=== PATIENT | male | born 1930 | race Caucasian/White ===

== ENCOUNTER 2016-12-11 20:49 | Inpatient (IN) ==
[2016-12-11] MEDS ORDERED: XOPENEX NEB INH ONE (20:57)
[2016-12-11] MEDS ORDERED: XOPENEX NEB ONE (21:00)
[2016-12-11 21:45] LABS: BASO% 0.5 % (0.0-0.8); EOS# 0.03 X1000 (0.0-0.7); EOS% 0.5 % (0.0-10.0); HEMATOCRIT 34.1 % (42.0-52.0); HEMOGLOBIN 9.7 g/dL (14.0-18.0); LYMPH% 18.8 % (20.5-51.1); MANUAL DIFF NEEDED? NO; MCH 22.8 PG (27-31); MCHC 28.4 g/dL (33-37); MCV 80.2 FL (81-99); MONO# 0.49 X1000 (0.11-0.59); MONO% 8.4 % (1.7-9.3); NEUT% 71.8 % (42.2-75.2); PLT 165 X1000 (130-400); RBC 4.25 XMIL (4.7-6.1)
--- NOTE | 2016-12-11 21:51 | EKG Report ---
Test Performed on : 12/11/2016 9:16:34 PM Test Reason : CHEST PAIN Blood Pressure : / mmHG Vent. Rate : 055 BPM Atrial Rate : 052 BPM P-R Int : 000 ms QRS Dur : 154 ms QT Int : 448 ms P-R-T Axes : 000 -75 -10 degrees QTc Int : 428 ms Atrial fibrillation. with slow ventricular response. Left axis deviation Right bundle branch block Septal infarct , age undetermined T wave abnormality, consider lateral ischemia Abnormal ECG When compared with ECG of 06-JUN-2016 08:30, No significant change was found Unconfirmed Result
[2016-12-11 21:56] LABS: INR 1.12 (0.86-1.15); PROTIME 15.3 Seconds (12.1-15.5)
[2016-12-11 21:57] LABS: PTT PL 32.1 Seconds (22.6-43.9)
[2016-12-11 21:59] LABS: AGAP 6; ALBUMIN 3.4 g/dL (3.5-5.0); ALKALINE PHOSPHATASE 81 U/L (32-122); BUN 31 mg/dL (8-22); CALCIUM 8.6 mg/dL (8.8-10.2); CHLORIDE 97 mmol/L (98-107); CK PROFILE 134 U/L (24-204); COSMO 288; GOT 25 U/L (10-34); GPT 28 U/L (10-44); MAGNESIUM 2.2 mg/dL (1.5-2.7); POTASSIUM 3.6 mmol/L (3.5-5.1); SODIUM 141 mmol/L (136-145); TCO2 38 mmol/L (25-35); TOTAL PROTEIN 5.6 g/dL (6.3-8.3)
[2016-12-11] MEDS ORDERED: LASIX IV ONE (22:48)
[2016-12-11] MEDS ORDERED: ZOFRAN IV PRN (23:38)
[2016-12-11] MEDS ORDERED: MORPHINE IV PRN (23:38)
--- NOTE | 2016-12-11 23:41 | PROVIDER DOCUMENTATION ---
HPI-General Adult - General Chief Complaint: Shortness of Breath Stated Complaint: DYSPNEA, HX COPD Time Seen by Provider: 12/11/16 20:50 Source: patient Allergies/Adverse Reactions: Patient Allergies Allergy/AdvReac Type Severity Reaction Status Date / Time Penicillins Allergy Mild RASH Verified 12/11/16 20:59 Home Medications: Home Medication List Medication Instructions Recorded Confirmed Last Taken Type Donepezil [Aricept] 5 mg PO QAM 06/04/16 12/12/16 12/10/16 History Duloxetine [Cymbalta] 30 mg PO DAILY 06/04/16 12/12/16 12/10/16 History Dutasteride 0.5 mg PO DAILY 06/04/16 12/12/16 12/10/16 History Esomeprazole [Nexium] 40 mg PO DAILY 06/04/16 12/12/16 12/10/16 History Melatonin 10 mg PO HS 06/04/16 12/12/16 12/10/16 History Mirtazapine [Remeron] 30 mg PO QHS 06/04/16 12/12/16 12/10/16 History Tamsulosin HCl 0.4 mg PO QAM 06/04/16 12/12/16 12/10/16 History Tramadol [Ultram] 50 mg PO BID PRN PRN 06/04/16 12/12/16 12/10/16 History Apixaban [Eliquis] 2.5 mg PO DAILY 12/12/16 12/12/16 12/10/16 History Bumetanide 2 mg PO BID 12/12/16 12/12/16 12/10/16 History Digoxin [Digoxin] 250 mcg PO DAILY 12/12/16 12/12/16 12/10/16 History Gabapentin [Neurontin] 100 mg PO DAILY 12/12/16 12/12/16 12/10/16 History - History of Present Illness -Gen Adult Nature of Presenting Problems: presents complaining of 2 day history of dyspnea and edema to BUE. No fever, cough. History of copd and is on oxygen at home. No record of chf history. Location of Pain/Injury: reports: none Pain Radiation: reports: no radiation Quality of Pain: reports: none Onset/Duration: reports: 2 days ago Context/Activities at Onset: reports: none Modifying Factors: improves with: nothing Associated Symptoms: reports: shortness of breath. denies: anxiety, chest pain , constipation, cough, diarrhea, dizziness, fatigue, fever/chills, headaches, malaise, nausea, rash, pain with inspiration, syncope, vomiting, weakness Similar Symptoms Previously?: No Recently seen or treated by another doctor?: No Review of Systems - Adult - REVIEW OF SYSTEMS - ADULT Constitutional: reports: no symptoms reported. denies: chills, fever Eyes: reports: no symptoms reported Ears, Nose, Mouth & Throat: reports: no symptoms reported Cardiovascular: reports: no symptoms reported. denies: chest pain Respiratory: reports: shortness of breath Gastrointestinal: reports: no symptoms reported Genitourinary: reports: no symptoms reported Musculoskeletal: reports: no symptoms reported Integumentary: reports: no symptoms reported Neurological: reports: no symptoms reported Psychiatric: reports: no symptoms reported Endocrine: reports: no symptoms reported Hematologic/Lymphatic: reports: no symptoms reported Allergic/Immunologic: reports: no symptoms reported All Other Systems: Reviewed and Negative Past History - Adult - PAST MEDICAL HISTORY-ADULT Review of Records: reports: Old Records Reviewed, Nursing Assessment Review, Medications Reviewed, Social history reviewed & non-contributory. Major Childhood Illnesses: reports: denies history Cardiovascular: reports: A-Fib, CAD, CHF, HTN Respiratory: reports: COPD Gastrointestinal: reports: GERD, GI bleed, other (Yvon lesions) Obstetrical/Gynecological: reports: denies history Genitourinary: reports: cancer (bladder), other (BPH) Musculoskeletal: reports: denies history Neurological: reports: denies history Psychiatric: reports: depression Endocrine/Immune: reports: Diabetes Other Conditions: reports: denies history - PRIOR SURGERIES/PROCEDURES Surgical/Procedure History: reports: tonsillectomy, hernia repair, other (TURP) - PRIOR HOSPITALIZATIONS Prior Hospitalizations: reports: for similar symptoms - IMMUNIZATION STATUS Childhood Immunizations: See Nurse Assessment Flu Vaccine: See Nurse Assessment - FAMILY HISTORY Family History: reviewed, not pertinent - SOCIAL HISTORY Smoking: denies Substance Use: none/never Alcohol Use Frequency: never Living Situation: care facility Physical Exam-General - PHYSICAL EXAM-ADULT Initial Vital Signs Reviewed: Yes - CONSTITUTIONAL General Appearance: appears well, alert, no apparent distress - EYES Eyes: PERRL/EOMI, pink conjunctivae - HEAD, EARS, NOSE, MOUTH & THROAT HENMT: normocephalic/atraumatic - NECK Neck: supple, normal inspection - RESPIRATORY Respiratory: chest non-tender, lungs clear, normal breath sounds - CARDIOVASCULAR Cardiovascular: normal peripheral pulses, regular rate, rhythm - GASTROINTESTINAL (ABDOMEN) Abdominal Exam: normal bowel sounds, non tender, soft - LYMPHATIC Lymphatic: no adenopathy - MUSCULOSKELETAL Back Exam: normal inspection Extremity: normal range of motion, other (there are several healing ulcers to LE ) Peripheral Pulses: dorsalis-pedis (R): 2+, dorsalis-pedis (L): 2+ - SKIN Integumentary: normal color, normal turgor, warm/dry - NEUROLOGIC Neurologic: grossly normal - PSYCHIATRIC Psych/Mental Status: normal mood/affect, oriented x 3 Progress - PLAN OF CARE/RESULTS Progress/Plan/Lab Results: Vital Signs - 8 hr 12/11/16 20:50 12/11/16 21:00 12/11/16 21:10 Temperature 98.3 F Pulse Rate 59 L 79 85 Respiratory Rate 25 H 20 18 Blood Pressure 123/82 133/80 O2 Sat by Pulse Oximetry 100 96 93 L 12/11/16 21:15 12/11/16 21:30 12/11/16 22:00 Temperature Pulse Rate 61 58 L 74 Respiratory Rate 22 24 25 H Blood Pressure 125/76 140/57 140/57 O2 Sat by Pulse Oximetry 96 98 89 L 12/11/16 22:15 12/11/16 22:45 Temperature Pulse Rate 58 L 49 L Respiratory Rate 24 18 Blood Pressure 114/70 119/70 O2 Sat by Pulse Oximetry 95 99 Laboratory Results - last 24 hr 12/11/16 12/11/16 12/11/16 21:05 21:05 21:05 WBC RBC Hgb Hct MCV MCH MCHC RDW Std Deviation Plt Count MPV Immature Gran % (Auto) Neut % (Auto) Lymph % (Auto) [place] % (Auto) Eos % (Auto) Baso % (Auto) Immature Gran # (Auto) Neut # (Auto) Lymph # (Auto) [place] # (Auto) Eos # (Auto) Baso # (Auto) PT INR APTT (Factor Assay) Sodium 141 Potassium 3.6 Chloride 97 L Carbon Dioxide 38 H Anion Gap 6 BUN 31 H Creatinine 1.0 Estimated GFR/1.73 m2 > 60 BUN/Creatinine Ratio 31 Glucose 110 H Calculated Osmolality 288 Calcium 8.6 L Magnesium 2.2 Total Bilirubin 0.70 AST 25 ALT 28 Alkaline Phosphatase 81 Creatine Kinase 134 Troponin T 0.053 [id number]-Zozloebminl Pept 6667 H Total Protein 5.6 L Albumin 3.4 L Globulin 2.0 Albumin/Globulin Ratio 2.0 Plasma Lactate 12/11/16 12/11/16 12/11/16 21:05 21:05 21:35 WBC 5.86 RBC 4.25 L Hgb 9.7 L Hct 34.1 L MCV 80.2 L MCH 22.8 L MCHC 28.4 L RDW Std Deviation 19.1 H Plt Count 165 MPV 11.0 H Immature Gran % (Auto) 0.0 Neut % (Auto) 71.8 Lymph % (Auto) 18.8 L [place] % (Auto) 8.4 Eos % (Auto) 0.5 Baso % (Auto) 0.5 Immature Gran # (Auto) 0.00 Neut # (Auto) 4.21 Lymph # (Auto) 1.10 L [place] # (Auto) 0.49 Eos # (Auto) 0.03 Baso # (Auto) 0.03 PT 15.3 INR 1.12 APTT (Factor Assay) 32.1 Sodium Potassium Chloride Carbon Dioxide Anion Gap BUN Creatinine Estimated GFR/1.73 m2 BUN/Creatinine Ratio Glucose Calculated Osmolality Calcium Magnesium Total Bilirubin AST ALT Alkaline Phosphatase Creatine Kinase Troponin T Ser-K-Vikeeknqpps Pept Total Protein Albumin Globulin Albumin/Globulin Ratio Plasma Lactate 1.3 Orders Category Date Time Status Cardiac Monitoring DIRECTED Care 12/11/16 20:58 Active Oxygen Therapy- ED Nursing DIRECTED Care 12/11/16 20:58 Active Saline Loc NOW Care 12/11/16 20:58 Active CHEST-2 VIEWS [RAD] Stat Exams 12/11/16 20:58 Taken BLOOD CULTURE [BLDCUL] Stat Lab 12/11/16 21:35 Received CBC WITH ELECTRONIC DIFF [HEME] Stat Lab 12/11/16 21:05 Completed CK PROFILE [SP CHEM] Stat Lab 12/11/16 21:05 Completed COMPREHENSIVE METABOLIC PANEL [CHEM] Stat Lab 12/11/16 21:05 Completed LACTATE, PLASMA [CHEM] Stat Lab 12/11/16 21:35 Completed MAGNESIUM [CHEM] Stat Lab 12/11/16 21:05 Completed PRO B-NATRIURETIC PEPTIDE Stat Lab 12/11/16 21:05 Completed [address]IME WITH INR PL [COAG] Stat Lab 12/11/16 21:[address] [COAG] Stat Lab 12/11/16 21:05 Completed TROPONIN T Stat Lab 12/11/16 21:05 Completed UA NIMS W/REFLEX CULT PL [URINALYSIS] Stat Lab 12/11/16 20:58 Ordered Furosemide [Lasix] Med 12/11/16 22:48 Discontinued 60 mg IV NOW ONE Levalbuterol Neb [Xopenex Neb] Med 12/11/16 21:00 Discontinued 2.5 mg .ROUTE .STK-MED ONE Levalbuterol Neb [Xopenex Neb] Med 12/11/16 20:57 Discontinued 2.5 mg INH NOW ONE neb [Aerosol Treatments] Stat Oth 12/11/16 20:57 Completed EKG [EKG] Stat Ther 12/11/16 20:58 Draft Result Diagrams: 12/11/16 21:05 12/11/16 21:05 - XRAY 1 XRAY Study: Chest (vasular congestion, no infiltrate) - CONSULTS/PCP/HOSPITALIST Notification #1 *Consult/PCP/Hospitalist*: Dr. Campos Time Discussed: 23:30 Consult Disposition: Admit Departure - Departure Date of Disposition Decision: 12/11/16 Time of Disposition Decision: 23:36 DIAGNOSIS: Hypoxemia CHF (congestive heart failure) Qualifiers: Congestive heart failure type: unspecified congestive heart failure type Congestive heart failure chronicity: acute Qualified Code(s): I50.9 - Heart failure, unspecified Disposition: ADMITTED INPATIENT 09 Certified Medical Emergency: Emergent Condition: Stable - Critical Care Note This patient required my direct & personal management of CC.: No Attestation - Physician/ MARLA Attestation Patient care was provided by Advanced Practice Provider:: Yes Advanced Practice Provider:: Doyle Madison Advanced Practice Provider documentation review:: The Mid-level provider documentation, treatment plan and medical decision making was reviewed by the physician who agrees with all treatment and medical decision making by the MLP. The physician spent face to face time with patient:: Yes Advanced Practice Provider documentation review:: Supervising physician onsite and consulted in the evaluation and care of this patient. The physician did have a face to face encounter with the patient.
[2016-12-12] MEDS ORDERED: PNEUMOVAX 23 IM ONE (04:26)
[2016-12-12] MEDS ORDERED: MORPHINE IV PRN (07:00)
--- NOTE | 2016-12-12 08:24 | Diag Imaging Result Doc PS360 ---
EXAM: CHEST-2 VIEWS HISTORY: hypoxemia TECHNIQUE: PA and Lateral chest x-ray COMPARISON: 05/06/2016 FINDINGS: There is cardiomegaly with pulmonary vascular congestion, basilar edema and bilateral pleural effusions. Findings have developed since the prior study. IMPRESSION: Suspect cardiogenic edema with small bilateral pleural effusions. Electronically signed by Tanisha Cortez 12/12/2016 8:21 AM
[2016-12-12] MEDS ORDERED: ULTRAM PO PRN (08:31)
[2016-12-12] MEDS: ELIQUIS PO SCH (09:38)
[2016-12-12] MEDS: NEURONTIN PO SCH (09:38)
[2016-12-12] MEDS: BUMEX PO SCH ×2 (09:38→20:20)
[2016-12-12] MEDS: ARICEPT PO SCH (09:38)
[2016-12-12] MEDS: FLOMAX PO SCH (09:38)
[2016-12-12] MEDS: CYMBALTA PO SCH (09:38)
[2016-12-12] MEDS: AVODART PO SCH (09:39)
[2016-12-12] MEDS: NEXIUM PO SCH (09:39)
[2016-12-12] MEDS ORDERED: SANTYL OINT TOP ONE (16:40)
[2016-12-12] MEDS ORDERED: FLEET ENEMA PR ONE (18:48)
--- NOTE | 2016-12-12 19:16 | HISTORY AND PHYSICAL ---
CHIEF COMPLAINT: Shortness of breath. HISTORY OF PRESENT ILLNESS: This is an 86-year-old male with a history of CAD, congestive heart failure, and COPD who presented to the emergency room complaining of 2 days of increasing dyspnea and edema to his upper extremities. He denied any cough, PND, orthopnea, chest pain or palpitations. He denied any fever or chills. His chest x-ray revealed cardiomegaly with pulmonary vascular congestion, bibasilar edema and small bilateral pleural effusions. He was given IV Lasix in the emergency room and he is being admitted for further evaluation and treatment. PAST MEDICAL HISTORY: COPD, diabetes mellitus, hypertension, atrial fibrillation chronic, osteoarthritis, osteopenia, bladder cancer. PAST SURGICAL HISTORY: Hernia repair, tonsillectomy, TURP. SOCIAL HISTORY: He denies alcohol, tobacco, or illicit drug use. ALLERGIES: Penicillin which causes a rash. HOME MEDICATIONS: Neurontin 100 mg daily, digoxin 250 mcg daily, Eliquis 2.5 daily, Bumex 2 mg b.i.d., Aricept 5 q.a.m., Nexium 40 mg daily, dutasteride 0.5 daily, Cymbalta 30 daily, tamsulosin 0.4 q.a.m., Remeron 30 mg at bedtime, melatonin 10 at bedtime, tramadol 50 mg b.i.d. p.r.n. REVIEW OF SYSTEMS: A 14 point review of systems was discussed with the patient, with pertinent positives stated in the HPI. He denied any chest pain, palpitations, dizziness, syncope, shortness of breath, PND, orthopnea, cough, fever, chills, nausea, vomiting, diarrhea, constipation, black or bloody vomitus, black or bloody stools, hematuria, dysuria, frequency, urgency. PHYSICAL EXAMINATION: GENERAL: This is an 86-year-old male who is lying in the bed, in no distress. VITAL SIGNS: Blood pressure is 110/49 with a heart rate of 61, respirations are 18, temperature is 97.5 degrees oral, with O2 saturation of 100% on 3 L nasal cannula. HEENT: Head is normocephalic, atraumatic. Pupils equal, round, reactive to light. EOMs are intact. Sclerae anicteric. Mucous membranes are moist. NECK: Supple. Trachea midline. CARDIOVASCULAR: Regular rate and rhythm. S1, S2 appreciated. PULMONARY: Breath sounds are clear with no increased work of breathing noted. GASTROINTESTINAL: Abdomen is soft, nontender, nondistended with bowel sounds in all 4 quadrants. BACK: No CVAT. No spine tenderness. MUSCULOSKELETAL: Good range of motion of joints. EXTREMITIES: No clubbing or cyanosis. Pulses are palpable x4. He does have 2+ lower extremity edema as well as bilateral upper extremity edema. He does have redness, warmth and swelling to bilateral extremities. Right having pretibial and medial ankle, and left having pretibial wounds. As noted he does have edema from knees to feet. DIAGNOSTICS: WBC is 5.8 with hemoglobin 9.7, hematocrit 34.1, platelets 165,000. Sodium 141, potassium 3.6, BUN 31, creatinine , glucose of 110. ASSESSMENT AND PLAN: 1. Hypoxemia. 2. Pulmonary edema per chest x-ray. 3. History of chronic atrial fibrillation on chronic anticoagulation. 4. Chronic obstructive pulmonary disease. 5. Hypertension. PLAN: He will be admitted to the hospital and placed on telemetry. He will have a diabetic diet. He will be placed on fingerstick blood sugars with sliding scale insulin. Blood cultures have been obtained. We will follow. Identify home medications and continue as appropriate. We will consult Wound Care. We will repeat labs in the morning. Further treatments pending hospital course. Dictated by FAITH Bell for Jerry Campos MD cc: FAITH Bell MD
[2016-12-12] MEDS: REMERON PO SCH (20:19)
[2016-12-12] MEDS: LACTULOSE PO SCH (20:19)
[2016-12-12] MEDS: MELATONIN PO SCH (20:20)
[2016-12-13] MEDS ORDERED: FLEET ENEMA PR ONE (05:00)
[2016-12-13] MEDS: NEXIUM PO SCH (06:11)
[2016-12-13 06:41] LABS: AGAP 4; ALBUMIN 3.5 g/dL (3.5-5.0); ALKALINE PHOSPHATASE 86 U/L (32-122); BUN 22 mg/dL (8-22); CALCIUM 8.1 mg/dL (8.8-10.2); CHLORIDE 98 mmol/L (98-107); COSMO 292; GOT 28 U/L (10-34); GPT 31 U/L (10-44); SODIUM 145 mmol/L (136-145); TCO2 43 mmol/L (25-35); TOTAL PROTEIN 5.6 g/dL (6.3-8.3)
[2016-12-13 06:42] LABS: HEMATOCRIT 36.5 % (42.0-52.0); MCH 22.3 PG (27-31); MCHC 27.4 g/dL (33-37); MCV 81.3 FL (81-99); MPV 10.9 FL (7.4-10.4); RBC 4.49 XMIL (4.7-6.1)
[2016-12-13] MEDS: NEURONTIN PO SCH (08:37)
[2016-12-13] MEDS: LACTULOSE PO SCH ×2 (08:37→20:35)
[2016-12-13] MEDS: BUMEX PO SCH ×2 (08:37→20:34)
[2016-12-13] MEDS: ELIQUIS PO SCH (08:37)
[2016-12-13] MEDS: FLOMAX PO SCH (08:37)
[2016-12-13] MEDS: ARICEPT PO SCH (08:37)
[2016-12-13] MEDS: CYMBALTA PO SCH (08:37)
[2016-12-13] MEDS: AVODART PO SCH (08:38)
[2016-12-13] MEDS: SANTYL OINT TOP SCH (08:41)
--- NOTE | 2016-12-13 12:28 | DISCHARGE SUMMARY ---
ADMISSION DATE: 12/11/2016 DISCHARGE DATE: 12/13/2016 DATE OF ADMISSION: 12/11. DATE OF DISCHARGE: 12/13. DISCHARGE DIAGNOSES: 1. Hypoxemia, resolved. 2. Pulmonary edema, resolved. 3. COPD, stable. CONSULTATIONS: None. PROCEDURES: None. HOSPITAL COURSE: The patient is an 78-year-old male who was admitted as on the [facility] secondary to a shortness of breath. DISCHARGE PHYSICAL EXAMINATION: On discharge, he notes that he is awake, alert. He is in no distress. He is feeling better. He is back to his usual status. Asked to go home. States that he is on oxygen at home and is feeling much better. DISPOSITION: The patient will be discharged home. DISCHARGE MEDICATIONS: We will continue all his home medications without any changes. We will continue breathing treatments. Continue his oxygen. DISCHARGE TIME: Thirty-five minutes was spent in total care. cc: Jerry Campos MD
--- NOTE | 2016-12-13 13:46 | PROGRESS NOTE ---
DATE: 12/13/2016 Mr. Camarena was in the process of being discharged from the hospital, and the nursing staff called his Assisted Living to give an update, and they were informed that the patient has had multiple falls daily over the last few months, that normally he lives with a friend but evidently this friend has cancer and is in declining health herself, therefore, Mr. Camarena will be alone. The Assisted Living does not feel that this patient is safe being home alone 24 hours a day. Mr. Camarena had previously refused going to rehab. In the setting of his being unsafe at home, we will cancel his discharge. We will consult Anesthesia Tech to assist and discharge planning on Mr. Camarena. Of note, he has been under the care of [facility]. This was rescinded for this hospitalization. On discharge, we will notify hospice per his wishes. Dictated by FAITH Bell for Jerry Campos MD cc: FAITH Bell MD
[2016-12-13] MEDS: REMERON PO SCH (20:35)
[2016-12-13] MEDS: MELATONIN PO SCH (20:35)
[2016-12-14] MEDS: NEXIUM PO SCH (06:23)
[2016-12-14] MEDS: SANTYL OINT TOP SCH ×2 (06:32→08:15)
[2016-12-14] MEDS: NEURONTIN PO SCH (08:14)
[2016-12-14] MEDS: FLOMAX PO SCH ×2 (08:14→20:33)
[2016-12-14] MEDS: LACTULOSE PO SCH ×2 (08:14→20:33)
[2016-12-14] MEDS: BUMEX PO SCH ×2 (08:14→20:33)
[2016-12-14] MEDS: ARICEPT PO SCH (08:14)
[2016-12-14] MEDS: CYMBALTA PO SCH (08:14)
[2016-12-14] MEDS: ELIQUIS PO SCH (08:15)
[2016-12-14] MEDS: AVODART PO SCH (08:15)
--- NOTE | 2016-12-14 10:49 | PROGRESS NOTE ---
DATE: 12/14/2016 SUBJECTIVE: Mr. Camarena is sitting up on the side of the bed. He has no complaints. OBJECTIVE: Vital Signs: Blood pressure is 106/65, with a heart rate of 78, respirations are 18, temperature is 97.4 degrees oral, with saturations of 97-99% on 2 L nasal cannula. General: Mr. Camarena is awake and alert. Sitting up on the side of the bed, eating, with no complaints. Cardiovascular: Regular rate and rhythm. S1 and S2 are appreciated. Pulmonary: Breath sounds are clear with no increased work of breathing noted. Gastrointestinal: Abdomen is soft, nontender, nondistended with bowel sounds in all 4 quadrants. Extremities: No clubbing or cyanosis. Edema is noted of about 1+ to his hands and feet. Skin: Warm and dry with dressings applied to bilateral legs and ankle. ASSESSMENT: 1. Hypoxemia, resolved. 2. Pulmonary edema, resolved. 3. Chronic obstructive pulmonary disease, stable. 4. Frequent falls. PLAN: We will continue with our current regimen. We will have physical therapy evaluate Mr. Camarena. We will have professor of social work start looking for rehab placement. Dictated by FAITH Bell for Jerry Campos MD cc: FAITH Bell MD
[2016-12-14 11:04] LABS: AGAP 2; BUN 23 mg/dL (8-22); CALCIUM 8.5 mg/dL (8.8-10.2); CHLORIDE 97 mmol/L (98-107); COSMO 290; POTASSIUM 3.2 mmol/L (3.5-5.1); SODIUM 144 mmol/L (136-145); TCO2 45 mmol/L (25-35)
[2016-12-14] MEDS ORDERED: KLOR-CON PO ONE (16:16)
[2016-12-14] MEDS: MELATONIN PO SCH (20:33)
[2016-12-14] MEDS: REMERON PO SCH (20:33)
[2016-12-15] MEDS: SANTYL OINT TOP SCH ×2 (06:01→08:28)
[2016-12-15] MEDS: NEXIUM PO SCH (06:19)
[2016-12-15 06:45] LABS: AGAP 4; BUN 26 mg/dL (8-22); CALCIUM 8.5 mg/dL (8.8-10.2); CHLORIDE 97 mmol/L (98-107); COSMO 292; POTASSIUM 3.2 mmol/L (3.5-5.1); SODIUM 144 mmol/L (136-145); TCO2 43 mmol/L (25-35)
[2016-12-15] MEDS ORDERED: KLOR-CON PO ONE (08:18)
[2016-12-15] MEDS: LACTULOSE PO SCH (08:24)
[2016-12-15] MEDS: CYMBALTA PO SCH (08:25)
[2016-12-15] MEDS: NEURONTIN PO SCH (08:25)
[2016-12-15] MEDS: BUMEX PO SCH (08:25)
[2016-12-15] MEDS: ELIQUIS PO SCH (08:25)
[2016-12-15] MEDS: AVODART PO SCH (08:25)
[2016-12-15] MEDS: FLOMAX PO SCH (08:25)
[2016-12-15] MEDS: ARICEPT PO SCH (08:25)
[2016-12-15] MEDS ORDERED: LANOXIN PO SCH (09:00)
--- NOTE | 2016-12-15 13:43 | DISCHARGE SUMMARY ---
ADMISSION DATE: 12/11/2016 DISCHARGE DATE: 12/15/2016 ADDENDUM REPORT: Please see previous H and PE for diagnosis and hospital course. DISCHARGE MEDICATIONS: Lactulose 30 mL p.o. b.i.d. p.r.n., tamsulosin 0.4 mg p.o. q.a.m., Remeron 30 mg p.o. at bedtime, dutasteride 0.5 mg p.o. daily, Cymbalta 30 mg p.o. daily, Aricept 5 mg p.o. q.a.m., Nexium 40 mg p.o. daily, Ultram 50 mg p.o. b.i.d. p.r.n., melatonin 10 mg p.o. at bedtime, Neurontin 100 mg p.o. daily, digoxin 250 mcg p.o. daily, Eliquis 2.5 mg p.o. daily, bumetanide 2 mg p.o. TIME SPENT: This is a 35 minute discharge. Dictated by FAITH Willson for Jerry Campos MD cc: FAITH Willson MD Roger H. Moss Jr, MD
[2016-12-15 15:38] VITALS: BP 123/57
--- NOTE | 2017-02-15 14:13 | ED EKG INTERP ---
This chart was entered by Lizeth Rutledge Scribe, acting as scribe for Kalia Diaz MD. EKG Interpretation - EKG Time of EKG reading by physician:: 21:17 EKG Read and Signed by:: Kalia Diaz EKG Interpretation (*Must complete 3 of following elements*): Abnormal Rate: 55 Rhythm: atrial fibrillation with slow ventricular response [place]: left QRS: RBB ST Wave: non-specific ST changes Attestation - Physician/ MARLA Attestation Patient care was provided by Advanced Practice Provider:: Yes Advanced Practice Provider documentation review:: The Mid-level provider documentation, treatment plan and medical decision making was reviewed by the physician who agrees with all treatment and medical decision making by the MLP. The physician spent face to face time with patient:: No Advanced Practice Provider documentation review:: Supervising physician onsite and consulted in the evaluation and care of this patient. The physician did not have a face to face encounter with the patient. This chart was documented by the indicated scribe, (Lizeth Rutledge Scribe) and accurately reflects the services I performed and decisions made by me, Kalia Diaz MD, as attested by the provider's signature.
== END 2016-12-15 17:46 ==
LOC: P.ED 20:49 → P.MEDSURG 23:47
PROVIDERS: ATTEND Family Medicine